=== PATIENT | male | born 1970 | race Caucasian/White ===

== ENCOUNTER 2018-03-12 18:27 | Emergency (ER) | payer OTHER ==
[~2018-03-12] VITALS: Ht 185.4 cm; Wt 79.4 kg
[~2018-03-12 18:27] MED LIST: CLEOCIN HCL300 MG PO; NOHOMEMEDICATIONS; TRAMADOL 50 MG50 MG PO
[2018-03-12 20:32] LABS: URINE BILIRUBIN NEGATIVE (Negative); URINE BLOOD NEGATIVE (Negative); URINE CLARITY CLEAR; URINE COLOR YELLOW; URINE GLUCOSE-RANDOM NEGATIVE (Negative); URINE KETONES NEGATIVE (Negative); URINE LEUKOCYTES-REFLEX NEGATIVE (Negative); URINE NITRITE-REFLEX NEGATIVE (Negative); URINE PROTEIN TRACE (Negative); URINE SPECIFIC GRAVITY >= 1.030 (1.005-1.030); URINE UROBILINOGEN 0.2 E.U./dl (0.2-1.0)
[2018-03-12] MEDS ORDERED: ROBAXIN 750 MG750 M1 PO (20:40)
[2018-03-12] MEDS ORDERED: IBUPROFEN 800800 MG PO (20:40)
[2018-03-12] MEDS ORDERED: NORCO 5-325 TA1 EACH PO (20:40)
[2018-03-12 20:57] VITALS: BP 116/81
== END 2018-03-12 20:57 | disposition home or self-care (01) ==
LOC: M.ERS 18:27
PROVIDERS: Nurse Practitioner Family
DX: S30.0XXA Contusion of lower back and pelvis, initial encounter (principal); F17.210 Nicotine dependence, cigarettes, uncomplicated; Z90.49 Acquired absence of other specified parts of digestive tract; W22.8XXA Striking against or struck by other objects, initial encounter; Y93.89 Activity, other specified; Y92.89 Other specified places as the place of occurrence of the external cause; Y99.8 Other external cause status